=== PATIENT | male | born 1970 | race Caucasian/White ===

== ENCOUNTER 2017-07-11 11:39 | Day surgery (SDC) | payer OTHER ==
[2017-07-11] MEDS ORDERED: TRIAMCINOLONE ACETONIDE 40 MG/ML SUS ONE (12:12)
[2017-07-11] MEDS ORDERED: BUPIVACAINE HCL 0.5% MPF 10 ML SOL ONE (12:13)
[2017-07-11] MEDS ORDERED: LIDOCAINE HCL 1% MPF SOL ONE (12:13)
[2017-07-11 13:00] VITALS: BP 130/74; PULSE 54; RESP 20; TEMP 97.7; O2SAT 97
== END 2017-07-11 13:05 | disposition home or self-care (01) ==
LOC: SURG 11:39
PROVIDERS: ATTEND Nurse Anesthetist, Certified Registered
DX: M12.88 Other specific arthropathies, not elsewhere classified, other specified site (principal); M54.5 Low back pain
CPT/HCPCS: 64493; 64494; 64495; 77003; J2001; J3300